=== PATIENT | female | born 1965 | race Caucasian/White ===

== ENCOUNTER 2016-11-05 19:24 | Emergency (ER) | payer BC ==
[~2016-11-05] VITALS: Ht 172.7 cm; Wt 103.0 kg
[2016-11-05] MEDS ORDERED: LAMICTAL25 MG PO ×2 (19:39→21:42)
[2016-11-05] MEDS ORDERED: ESCITALOPRAM (19:40)
[2016-11-05] MEDS ORDERED: XANAX (19:40)
[2016-11-05] MEDS ORDERED: LAMICTAL (19:40)
[2016-11-05 19:52] LABS: HEMATOCRIT 37.6 % (36.0-46.0); MCH 31.4 PG (29.0-34.0); MCV 92.2 FL (83-99); MEAN PLAT.VOLUME 10.7 uM^3 (9.5-12.4); PLATELET COUNT 282 K/uL (156-360); RBC DIS.WIDTH-CV 12.3 % (11.8-14.6); RBC DIS.WIDTH-SD 41.6 % (39-53); RED BLOOD COUNT 4.08 M/uL (3.80-5.20); WHITE BLOOD COUNT 7.5 K/uL (4.1-10.2)
[2016-11-05 20:11] LABS: ANION GAP 8 MEQ/L (2-14); CHLORIDE 108 MEQ/L (99-109); POTASSIUM 3.9 MEQ/L (3.7-5.4); SAMPLE HEMOLYSIS CHECK 0; SAMPLE ICTERIC CHECK 0; SAMPLE LIPEMIA CHECK 0; SODIUM 141 MEQ/L (136-147)
[2016-11-05 20:35] LABS: QUANTITATIVE HCG < 4.0 MIU/ML
[2016-11-05 20:36] LABS: GFR ESTIMATE (CALCULATED) > 59 mL/min/; GLUCOSE 122 mg/dL (70-99); SERUM ETHYL ALCOHOL < 10 mg/dL; UREA NITROGEN (BUN) 18 mg/dL (9-23)
[2016-11-05 20:51] LABS: AMPHETAMINE NEGATIVE (500 ng/mL); BARBITURATES NEGATIVE (200 ng/mL); BENZODIAZEPINES NEGATIVE (150 ng/mL); COCAINE NEGATIVE (150 ng/mL); METHADONE NEGATIVE (200 ng/mL); METHAMPHETAMINE NEGATIVE (500 ng/mL); OPIATES (MORPHINE) NEGATIVE (100 ng/mL); OXYCODONE NEGATIVE (100 ng/mL); PHENCYCLIDINE NEGATIVE (25 ng/mL); PROPOXYPHENE NEGATIVE (300 ng/mL); THC CANNABINOIDS NEGATIVE (50 ng/mL); TRICYCLIC ANTIDEPRESSANTS NEGATIVE (300 ng/mL)
[2016-11-05 20:52] LABS: INTERNAL CONTROLS VALID? YES
[2016-11-05] MEDS ORDERED: LEXAPRO10 MG PO (21:29)
[2016-11-05 21:36] VITALS: BP 143/87
== END 2016-11-05 22:23 | disposition home or self-care (01) ==
LOC: EME 19:24
PROVIDERS: Emergency Medicine
DX: F41.9 Anxiety disorder, unspecified (principal); F31.9 Bipolar disorder, unspecified
CPT/HCPCS: 80048; 84702; 85027; 99281; 99285; G0480; J2060